=== PATIENT | female | born 1955 | race Caucasian/White ===

== ENCOUNTER 2022-01-13 12:59 | Emergency (ER) | payer BC, MEDICARE ==
[2022-01-13 14:17] LABS: #Eosinphils 0.1 thou/uL (0.0-0.7); #Lymphocytes 1.1 thou/uL (1.20-3.40); #Monocytes 0.5 thou/uL (0.11-0.59); #Neutrophils 4.5 thou/uL (1.40-6.50); %Basophils 0.4 % (0.0-1.0); %Monocytes 7.9 % (0.0-10.0); %Neutrophils 73.7 % (42.0-75.0); Hemoglobin 12.3 g/dL (12.0-16.0); Mean Corpuscular HGB CONC 31.8 g/dL (32.0-36.0); Mean Corpuscular Hemoglobin 29.2 pg (27.0-31.0); Mean Corpuscular Volume 91.8 fL (78.0-98.0); Platelet Count 198 thou/uL (130-400); RBC Distribution Width 14.7 % (11.5-14.5); Red Blood Cell (RBC) Count 4.22 mill/uL (4.20-5.40); White Blood Cell (WBC) Count 6.2 thou/uL (4.8-10.8)
[2022-01-13 14:37] LABS: ALT (SGPT) 14 U/L (8-55); AST (SGOT) 12 U/L (5-34); Alkaline Phosphatase 80 U/L (40-110); Anion Gap 13 mmol/L (10-20); BUN (Urea Nitrogen) 18 mg/dL (9.8-20.1); Bilirubin, Total 0.5 mg/dL (0.2-1.2); Calc. Creatinine Clearance 0 mL/min (70-130); Calcium 9.8 mg/dL (7.8-10.44); Carbon Dioxide 26 mmol/L (23-31); Chloride 103 mmol/L (98-107); Estimated GFR 83; Globulin 3.1 g/dL (2.4-3.5); Glucose 124 mg/dL (80-115); Potassium 4.2 mmol/L (3.5-5.1); Protein, Total 7.1 g/dL (5.8-8.1); Sodium 138 mmol/L (136-145)
== END 2022-01-13 16:21 | disposition home or self-care (01) ==
LOC: ERS 12:59
DX: N93.9 Abnormal uterine and vaginal bleeding, unspecified (principal); R93.89 Abnormal findings on diagnostic imaging of other specified body structures
CPT/HCPCS: 36415; 76856; 80053; 85025; 86850; 86900; 86901

== ENCOUNTER 2023-08-27 15:51 | Inpatient (IN) | payer BC, MEDICARE ==
[~2023-08-27 15:51] MED LIST: Iopamidol-370 76% 500 ML MDV (1 ML CHARGE) ONE
[2023-08-27] MEDS ORDERED: Morphine 4 MG/ML VIAL ONE ×2 (16:25→21:33)
[2023-08-27] MEDS ORDERED: Metoclopramide HCl 10 MG (2 mL) VIAL ONE (16:25)
[2023-08-27 16:27] LABS: #Basophils 0.03 10x3/uL (0.0-0.2); #Eosinphils Less than 0.03 10x3/uL (0.0-0.7); %Basophils 0.2 % (0.0-1.0); %Eosinophils 0.1 % (0.0-10.0); %Lymphocytes 4.9 % (21.0-51.0); %Monocytes 4.7 % (0.0-10.0); %Neutrophils 88.9 % (42.0-75.0); Hematocrit 40.4 % (36.0-47.0); Hemoglobin 13.3 g/dL (12.0-16.0); Mean Corpuscular HGB CONC 32.9 g/dL (32.0-36.0); Mean Corpuscular Hemoglobin 29.6 pg (27.0-31.0); Mean Platelet Volume 10.4 fL (7.4-10.4); Platelet Count 205 10x3/uL (130-400); RBC Distribution Width 14.2 % (11.5-14.5); Red Blood Cell (RBC) Count 4.49 mill/uL (4.20-5.40)
[2023-08-27 16:59] LABS: Globulin 3.8 g/dL (2.4-3.5)
[2023-08-27 17:04] LABS: ALT (SGPT) 12 U/L (8-55); AST (SGOT) 11 U/L (5-34); Albumin 3.5 g/dL (3.4-4.8); Alkaline Phosphatase 83 U/L (40-110); Anion Gap 14 mmol/L (10-20); BUN (Urea Nitrogen) 10 mg/dL (9.8-20.1); Bilirubin, Total 1.1 mg/dL (0.2-1.2); Calc. Creatinine Clearance 0 mL/min (70-130); Calcium 9.9 mg/dL (7.8-10.44); Carbon Dioxide 25 mmol/L (23-31); Chloride 98 mmol/L (98-107); Estimated GFR 88; Glucose 137 mg/dL (80-115); Lipase 74 U/L (8-78); Potassium 3.7 mmol/L (3.5-5.1); Protein, Total 7.3 g/dL (5.8-8.1); Sodium 133 mmol/L (136-145)
[2023-08-27 18:25] LABS: Troponin I Less than 0.010 ng/mL (< 0.028)
[2023-08-27] MEDS ORDERED: hydrALAZINE 20 MG/ML VIAL ONE ×2 (19:00→21:33)
[2023-08-27] MEDS ORDERED: fentaNYL 50 mcg/mL 1 mL Vial ONE (19:02)
[2023-08-27 19:17] LABS: Magnesium 1.9 mg/dL (1.6-2.6)
[2023-08-27 19:19] LABS: Bilirubin Negative (Negative); Blood, Urine Negative (Negative); CAUTI Indications for Culture Pelvic or flank pain; Clarity Clear (Clear); Glucose, Urine (Dipstick) Normal (Negative); Ketone, Urine 20 mg/dL (Negative); Leukocyte Negative Leu/uL (Negative); Nitrite Negative (Negative); Protein, Urine (Dipstick) 10 mg/dL (Neg-Trace); RBC/HPF 0-3 HPF (0-3); Specific Gravity, Urine 1.012 (1.002-1.036); Squamous Epithelial 0-3 HPF (0-3); Urobilinogen Normal mg/dL (Less than 2); WBC/HPF 0-3 HPF (0-3); pH, Urine 6.5 (5.0-9.0)
[2023-08-27 19:21] LABS: Bacteria/HPF 1+ HPF (None Seen)
[2023-08-27 19:22] LABS: Urine Culture Reflex No No
[2023-08-27] MEDS ORDERED: Nitroglycerin 0.4 MG TAB 1 EACH ONE (21:35)
[2023-08-28] MEDS: Sodium Chloride 0.9% 1,000 ML IV SCH (00:40)
[2023-08-28] MEDS: NIFEdipine XL 30 MG ER.TAB PO SCH (00:40)
[2023-08-28] MEDS ORDERED: HYDROcodone/Acetaminophen 7.5/325 mg Tablet ONE ×2 (04:42→10:53)
[2023-08-28] MEDS: HYDROcodone/Acetaminophen 7.5/325 mg Tablet PO PRN (04:44)
[2023-08-28 05:18] LABS: #Basophils 0.03 10x3/uL (0.0-0.2); #Eosinphils Less than 0.03 10x3/uL (0.0-0.7); %Basophils 0.2 % (0.0-1.0); %Eosinophils 0.1 % (0.0-10.0); %Monocytes 4.7 % (0.0-10.0); Hematocrit 39.3 % (36.0-47.0); Hemoglobin 12.6 g/dL (12.0-16.0); Mean Corpuscular HGB CONC 32.1 g/dL (32.0-36.0); Mean Corpuscular Hemoglobin 28.9 pg (27.0-31.0); Mean Corpuscular Volume 90.1 fL (78.0-98.0); Platelet Count 195 10x3/uL (130-400); RBC Distribution Width 14.3 % (11.5-14.5); Red Blood Cell (RBC) Count 4.36 mill/uL (4.20-5.40)
[2023-08-28 05:27] LABS: Globulin 3.6 g/dL (2.4-3.5)
[2023-08-28 05:31] LABS: ALT (SGPT) 9 U/L (8-55); AST (SGOT) 9 U/L (5-34); Albumin 3.2 g/dL (3.4-4.8); Alkaline Phosphatase 78 U/L (40-110); Anion Gap 14 mmol/L (10-20); BUN (Urea Nitrogen) 12 mg/dL (9.8-20.1); Calc. Creatinine Clearance 0 mL/min (70-130); Calcium 9.6 mg/dL (7.8-10.44); Carbon Dioxide 23 mmol/L (23-31); Chloride 99 mmol/L (98-107); Estimated GFR 91; Glucose 138 mg/dL (80-115); Lipase 21 U/L (8-78); Potassium 3.5 mmol/L (3.5-5.1); Protein, Total 6.8 g/dL (5.8-8.1); Sodium 132 mmol/L (136-145)
[2023-08-28] MEDS ORDERED: Ondansetron PF 4 MG/2 ML Vial ONE (08:04)
[2023-08-28] MEDS: Ondansetron PF 4 MG/2 ML Vial IVP PRN (08:13)
[2023-08-28] MEDS: NIFEdipine XL 60 MG ER.TAB PO SCH (08:18)
[2023-08-28 13:46] VITALS: BMI 56.3
[2023-08-28] MEDS ORDERED: Meclizine HCl 25 MG TAB PO PRN (17:54)
[2023-08-28] MEDS: Ampicillin/Sulbactam 3 GM in Sodium Chloride 0.9% 100 ML IVPB SCH (18:10)
[2023-08-28] MEDS ORDERED: Bisacodyl 10 MG SUPP PR PRN (18:10)
[2023-08-28] MEDS: Senokot S 8.6-50 MG TAB PO SCH (21:14)
[2023-08-29 04:08] LABS: #Basophils Less than 0.03 10x3/uL (0.0-0.2); %Basophils 0.2 % (0.0-1.0); %Lymphocytes 5.7 % (21.0-51.0); %Monocytes 6.2 % (0.0-10.0); Mean Corpuscular HGB CONC 32.5 g/dL (32.0-36.0); Mean Corpuscular Hemoglobin 29.3 pg (27.0-31.0); Mean Corpuscular Volume 90.1 fL (78.0-98.0); Mean Platelet Volume 10.5 fL (7.4-10.4); Platelet Count 215 10x3/uL (130-400); RBC Distribution Width 14.2 % (11.5-14.5); Red Blood Cell (RBC) Count 4.44 mill/uL (4.20-5.40)
[2023-08-29 04:20] LABS: Globulin 3.9 g/dL (2.4-3.5)
[2023-08-29 04:25] LABS: ALT (SGPT) 11 U/L (8-55); AST (SGOT) 11 U/L (5-34); Albumin 2.9 g/dL (3.4-4.8); Alkaline Phosphatase 78 U/L (40-110); Anion Gap 15 mmol/L (10-20); BUN (Urea Nitrogen) 15 mg/dL (9.8-20.1); Bilirubin, Total 0.7 mg/dL (0.2-1.2); Calc. Creatinine Clearance 170 mL/min (70-130); Calcium 9.5 mg/dL (7.8-10.44); Carbon Dioxide 22 mmol/L (23-31); Chloride 100 mmol/L (98-107); Estimated GFR 94; Glucose 118 mg/dL (80-115); Potassium 3.4 mmol/L (3.5-5.1); Protein, Total 6.8 g/dL (5.8-8.1); Sodium 134 mmol/L (136-145)
[2023-08-29] MEDS: Potassium Chloride 20 MEQ TAB PO SCH (09:43)
[2023-08-29] MEDS: Magnesium 2 GM/50 ML(in water) 2 GM in Premix 1 BAG IVPB SCH (09:44)
[2023-08-29] MEDS: Acetaminophen 325 MG TAB PO PRN (10:16)
[2023-08-29] MEDS ORDERED: Potassium Chloride 10 MEQ/100 ML PREMIX BAG IVPB SCH (14:00)
[2023-08-29] MEDS ORDERED: EPINEPHrine 1 MG/ML VIAL ONE (15:14)
[2023-08-29] MEDS ORDERED: Bupivacaine PF 0.5% 30 ML VIAL ONE (15:14)
[2023-08-29] MEDS ORDERED: fentaNYL PF 100 MCG/2 ML SYRINGE ONE (15:26)
[2023-08-29] MEDS ORDERED: PROPOFOL 20 ML ONE (15:26)
[2023-08-29] MEDS ORDERED: Midazolam HCl 2 mg/2 ml Vial ONE (15:26)
[2023-08-29] MEDS ORDERED: Glycopyrrolate 0.2 MG/ML 5 ML SYRINGE ONE (16:14)
[2023-08-29] MEDS ORDERED: Dexamethasone 20 MG/5 ML VIAL ONE (16:25)
[2023-08-29] MEDS ORDERED: Lidocaine 1% PF 5 ML VIAL ONE (16:25)
[2023-08-29] MEDS ORDERED: Rocuronium Bromide 10 MG/ML (10ML VIAL) ONE (16:25)
[2023-08-29] MEDS ORDERED: Ketorolac Tromethamine 30 MG (1 mL) VIAL ONE (16:25)
[2023-08-29] MEDS ORDERED: SUGAMMADEX SODIUM 200 MG/2 ML VIAL ONE (16:25)
[2023-08-29] MEDS ORDERED: Ondansetron PF 4 MG/2 ML Vial ONE (16:25)
[2023-08-29] MEDS ORDERED: traMADol HCl 50 MG TAB PO PRN (16:35)
[2023-08-29] MEDS ORDERED: Ibuprofen 600 MG TAB PO PRN (16:35)
[2023-08-29] MEDS ORDERED: Acetaminophen 500 MG TAB PO SCH (17:00)
[2023-08-29 18:35] VITALS: BP 155/68; TEMP 97.2
[2023-08-30] MEDS ORDERED: Polyethylene Glycol 3350 17 GM Packet PO SCH (09:00)
[2023-09-05] MEDS ORDERED: Semaglutide [Ozempic] 1 MG/0.75 ML Pen.Injctr SC SCH (09:00)
== END 2023-08-29 20:00 | disposition home or self-care (01) | DRG 418 ==
LOC: ERS 15:51 → ERHOLD 23:07 → 2SW 23:32 → OBSVTOIN 08-28 17:13 → 2SW 08-29 09:54
PROVIDERS: ADMIT Internal Medicine; ATTEND Internal Medicine
PROC: 0FT44ZZ Resection of Gallbladder, Percutaneous Endoscopic Approach (ICD-10-PCS; principal; 2023-08-29)
PROC: 3E033XZ Introduction of Vasopressor into Peripheral Vein, Percutaneous Approach (ICD-10-PCS; 2023-08-29)
DX: K80.12 Calculus of gallbladder with acute and chronic cholecystitis without obstruction (principal); E87.1 Hypo-osmolality and hyponatremia; Z68.43 Body mass index [BMI] 50.0-59.9, adult; I16.0 Hypertensive urgency; Z90.710 Acquired absence of both cervix and uterus; Z79.899 Other long term (current) drug therapy; E66.01 Morbid (severe) obesity due to excess calories; E87.6 Hypokalemia; D72.829 Elevated white blood cell count, unspecified
CPT/HCPCS: 36415; 70450; 71045; 71275; 74174; 76705; 80053; 81001; 83605; 83690; 83735; 83880; 84484; 85025; 88304; 93005; 96361; 96374; 96375; 96376; C1889; G0378; J0171; J0295; J0360; J0665; J1100; J1885; J2250; J2270; J2405; J2704; J2765; J3010; J3475; J3490; J7050; Q9967

== ENCOUNTER 2025-02-26 14:51 | Emergency (ER) | payer BC, MEDICARE ==
[2025-02-26 16:08] LABS: #Basophils Less than 0.03 10x3/uL (0.0-0.2); #Eosinophils 0.03 10x3/uL (0.0-0.7); #Monocytes 0.43 10x3/uL (0.11-0.59); #Neutrophils 5.65 10x3/uL (1.40-6.50); %Basophils 0.3 % (0.0-1.0); %Eosinophils 0.4 % (0.0-10.0); %Lymphocytes 10.7 % (21.0-51.0); %Monocytes 6.2 % (0.0-10.0); %Neutrophils 81.7 % (42.0-75.0); Hematocrit 38.5 % (36.0-47.0); Hemoglobin 12.5 g/dL (12.0-16.0); Mean Corpuscular Hemoglobin 28.4 pg (27.0-31.0); Mean Corpuscular Volume 87.5 fL (78.0-98.0); Platelet Count 197 10x3/uL (130-400); Red Blood Cell (RBC) Count 4.40 mill/uL (4.20-5.40); White Blood Cell (WBC) Count 6.92 10x3/uL (4.8-10.8)
[2025-02-26 16:21] LABS: INR-International Normal Ratio 0.9; Prothrombin Time 12.5 sec (12.0-14.7)
[2025-02-26 16:22] LABS: PTT 26.0 sec (22.9-36.1)
[2025-02-26 16:29] LABS: ALT (SGPT) 243 U/L (Less than 34); AST (SGOT) 137 U/L (11-34); Albumin 3.2 g/dL (3.1-4.5); Alkaline Phosphatase 434 U/L (40-110); Anion Gap 14 mmol/L (10-20); BUN (Urea Nitrogen) 19 mg/dL (9.8-20.1); Bilirubin, Total 7.2 mg/dL (0.3-1.2); CK (CPK) 27 U/L (29-168); Calc. Creatinine Clearance 0 mL/min (70-130); Calcium 9.8 mg/dL (7.8-10.44); Carbon Dioxide 25 mmol/L (23-31); Chloride 96 mmol/L (98-107); Globulin 3.5 g/dL (2.4-3.5); Glucose 348 mg/dL (83-110); Lipase 53 U/L (8-78); Magnesium 1.8 mg/dL (1.6-2.6); Potassium 3.3 mmol/L (3.5-5.1); Sodium 132 mmol/L (136-145)
[2025-02-26 20:06] LABS: Bacteria/HPF None Seen HPF (None Seen); CAUTI Indications for Culture Alt mental st,lethar; Glucose, Urine (Dipstick) Greater than 1000 mg/dL (Negative); Leukocyte 75 Leu/uL (Negative); Protein, Urine (Dipstick) 10 mg/dL (Neg-Trace); RBC/HPF 0-3 HPF (0-3); WBC/HPF 0-3 HPF (0-3); Yeast-Budding Rare HPF (None Seen)
[2025-02-26 20:11] LABS: Specific Gravity, Urine Greater than 1.036 (1.002-1.036)
[2025-02-26 20:13] LABS: Urine Culture Reflex No No
[2025-02-26] MEDS ORDERED: diphenhydrAMINE 50 MG/ML VIAL ONE (21:34)
== END 2025-02-27 00:40 | disposition short-term general hospital (02) ==
LOC: ERS 14:51
DX: K86.9 Disease of pancreas, unspecified (principal); R17 Unspecified jaundice
CPT/HCPCS: 71045; 74177; 81001; 82248; 82550; 83605; 83690; 83735; 83880; 84100; 84484; 85610; 85730; 86850; 86900; 86901; 93005; 96374; 96375; 99285; J1200; J2270; J3010; 84443; 85025

== ENCOUNTER 2025-03-14 17:19 | Inpatient (IN) | payer MEDICARE, OTHER ==
[2025-03-14 17:56] LABS: #Basophils 0.04 10x3/uL (0.0-0.2); #Eosinophils 0.10 10x3/uL (0.0-0.7); #Monocytes 1.09 10x3/uL (0.11-0.59); #Neutrophils 8.74 10x3/uL (1.40-6.50); %Basophils 0.4 % (0.0-1.0); %Eosinophils 0.9 % (0.0-10.0); %Lymphocytes 10.8 % (21.0-51.0); %Monocytes 9.7 % (0.0-10.0); %Neutrophils 77.7 % (42.0-75.0); Hematocrit 37.8 % (36.0-47.0); Hemoglobin 12.0 g/dL (12.0-16.0); Mean Corpuscular Hemoglobin 28.8 pg (27.0-31.0); Mean Corpuscular Volume 90.9 fL (78.0-98.0); Platelet Count 320 10x3/uL (130-400); Red Blood Cell (RBC) Count 4.16 mill/uL (4.20-5.40); White Blood Cell (WBC) Count 11.25 10x3/uL (4.8-10.8)
[2025-03-14 18:00] LABS: ALT (SGPT) 57 U/L (Less than 34); AST (SGOT) 54 U/L (11-34); Albumin 3.1 g/dL (3.1-4.5); Alkaline Phosphatase 182 U/L (40-110); Anion Gap 20 mmol/L (10-20); BUN (Urea Nitrogen) 52 mg/dL (9.8-20.1); Bilirubin, Total 2.6 mg/dL (0.3-1.2); Calc. Creatinine Clearance 0 mL/min (70-130); Calcium 9.6 mg/dL (7.8-10.44); Carbon Dioxide 17 mmol/L (23-31); Chloride 101 mmol/L (98-107); Globulin 4.1 g/dL (2.4-3.5); Glucose 119 mg/dL (83-110); Potassium 4.8 mmol/L (3.5-5.1); Sodium 133 mmol/L (136-145)
[2025-03-14 18:21] LABS: CAUTI Indications for Culture Alt mental st,lethar; Glucose, Urine (Dipstick) 30 mg/dL (Negative); Leukocyte Negative Leu/uL (Negative); Protein, Urine (Dipstick) 30 mg/dL (Neg-Trace); RBC/HPF 0-3 HPF (0-3); Specific Gravity, Urine 1.022 (1.002-1.036); WBC/HPF 0-3 HPF (0-3)
[2025-03-14 18:22] LABS: Bacteria/HPF 1+ HPF (None Seen); Urine Culture Reflex No No
[2025-03-14] MEDS ORDERED: Norepinephrine 8 MG/0.9% NS 250 ML ONE (18:32)
[2025-03-14] MEDS ORDERED: VANCOMYCIN 2 GRAM/400 ML BAG ONE (19:03)
[2025-03-14 19:23] LABS: Actual Bicarbonate (HCO3v) 21.1 mEq/L (22-28); Analyzer IN Cardio ER; Base Excess -6.0 mEq/L (-2.0 to +3.0); Calcium, Ionized (venous) 1.08 mmol/L (1.16-1.32); Chloride (VBG) 101 mmol/L (98-106); Hematocrit-VBG 37 % (36.0-47.0); Hemoglobin (Hb) 12.6 g/dL (11.7-16.1); Potassium (VBG) 4.14 mmol/L (3.70-5.30); Sodium 135 mmol/L (133-146)
[2025-03-14] MEDS ORDERED: Vancomycin 1.5 GM / NS 500ML VIAL-2-BAG IVPB SCH (20:00)
[2025-03-14] MEDS ORDERED: Vancomycin Dose by Levels Sliding Scale (Wt > 99) FS SCH (23:00)
[2025-03-14] MEDS: Hydrocortisone Sod Succ/PF 100 mg/2 ml Vial IVP SCH (23:10)
[2025-03-14] MEDS: VANCOMYCIN 2 GRAM/400 ML Premix BAG IVPB SCH (23:13)
[2025-03-14] MEDS ORDERED: Glucagon 1 MG/ML KIT IM PRN (23:44)
[2025-03-14] MEDS ORDERED: Dextrose 50% Abboject 50 ML SYRINGE SLOW IVP PRN (23:44)
[2025-03-15 00:54] LABS: INR-International Normal Ratio 1.4; PTT 28.7 sec (22.9-36.1); Prothrombin Time 16.8 sec (12.0-14.7)
[2025-03-15] MEDS: Vasopressin In 0.9 % NaCl 100 ML IV SCH (01:06)
[2025-03-15 03:00] LABS: #Basophils 0.05 10x3/uL (0.0-0.2); #Eosinophils 0.11 10x3/uL (0.0-0.7); #Monocytes 0.56 10x3/uL (0.11-0.59); #Neutrophils 22.27 10x3/uL (1.40-6.50); %Basophils 0.2 % (0.0-1.0); %Eosinophils 0.5 % (0.0-10.0); %Lymphocytes 1.2 % (21.0-51.0); %Monocytes 2.4 % (0.0-10.0); %Neutrophils 95.0 % (42.0-75.0); Hematocrit 36.2 % (36.0-47.0); Hemoglobin 11.2 g/dL (12.0-16.0); Mean Corpuscular Hemoglobin 29.2 pg (27.0-31.0); Mean Corpuscular Volume 94.3 fL (78.0-98.0); Platelet Count 336 10x3/uL (130-400); Red Blood Cell (RBC) Count 3.84 mill/uL (4.20-5.40); White Blood Cell (WBC) Count 23.45 10x3/uL (4.8-10.8)
[2025-03-15 03:42] LABS: ALT (SGPT) 52 U/L (Less than 34); AST (SGOT) 58 U/L (11-34); Albumin 2.6 g/dL (3.1-4.5); Alkaline Phosphatase 159 U/L (40-110); Anion Gap 21 mmol/L (10-20); BUN (Urea Nitrogen) 54 mg/dL (9.8-20.1); Bilirubin, Total 2.7 mg/dL (0.3-1.2); Calc. Creatinine Clearance 16 mL/min (70-130); Calcium 8.3 mg/dL (7.8-10.44); Carbon Dioxide 15 mmol/L (23-31); Chloride 103 mmol/L (98-107); Globulin 3.3 g/dL (2.4-3.5); Glucose 194 mg/dL (83-110); Potassium 4.3 mmol/L (3.5-5.1); Sodium 135 mmol/L (136-145)
[2025-03-15] MEDS: Hydrocortisone Sod Succ/PF 100 mg/2 ml Vial IVP SCH (04:03)
[2025-03-15] MEDS: Norepinephrine 8 MG/0.9% NS 250 ML IVPB SCH (05:34)
[2025-03-15] MEDS: Heparin 5,000 UNITS/ML VIAL SC SCH (09:52)
[2025-03-15] MEDS: Mupirocin 1 GM TUBE TP SCH (09:52)
[2025-03-15] MEDS: Pantoprazole 40 MG VIAL IVP SCH (09:52)
[2025-03-15] MEDS: Albumin 25% 25 GM (100 mL) BOT IVPB SCH ×2 (09:52→11:34)
[2025-03-15 18:45] LABS: Albumin 3.3 g/dL (3.1-4.5); Anion Gap 22 mmol/L (10-20); BUN (Urea Nitrogen) 57 mg/dL (9.8-20.1); BUN/Creatinine Ratio 12.26; Calc. Creatinine Clearance 20 mL/min (70-130); Calcium 8.4 mg/dL (7.8-10.44); Carbon Dioxide 18 mmol/L (23-31); Chloride 99 mmol/L (98-107); Glucose 229 mg/dL (83-110); Potassium 4.3 mmol/L (3.5-5.1); Sodium 135 mmol/L (136-145)
[2025-03-16] MEDS: diphenhydrAMINE 50 MG/ML VIAL IVP SCH ×2 (01:48→20:05)
[2025-03-16 04:54] LABS: Vancomycin, Random 21.2 ug/mL (See Comment)
[2025-03-16 04:56] LABS: ALT (SGPT) 34 U/L (Less than 34); AST (SGOT) 25 U/L (11-34); Albumin 3.4 g/dL (3.1-4.5); Alkaline Phosphatase 92 U/L (40-110); Anion Gap 19 mmol/L (10-20); BUN (Urea Nitrogen) 61 mg/dL (9.8-20.1); Bilirubin, Total 2.0 mg/dL (0.3-1.2); Calc. Creatinine Clearance 22 mL/min (70-130); Calcium 8.6 mg/dL (7.8-10.44); Carbon Dioxide 23 mmol/L (23-31); Chloride 99 mmol/L (98-107); Globulin 2.5 g/dL (2.4-3.5); Glucose 257 mg/dL (83-110); Potassium 3.3 mmol/L (3.5-5.1); Sodium 138 mmol/L (136-145)
[2025-03-16 05:05] LABS: #Basophils Less than 0.03 10x3/uL (0.0-0.2); #Eosinophils Less than 0.03 10x3/uL (0.0-0.7); #Monocytes 0.32 10x3/uL (0.11-0.59); #Neutrophils 7.29 10x3/uL (1.40-6.50); %Basophils 0.1 % (0.0-1.0); %Eosinophils 0.0 % (0.0-10.0); %Lymphocytes 4.0 % (21.0-51.0); %Monocytes 4.0 % (0.0-10.0); %Neutrophils 91.4 % (42.0-75.0); Hematocrit 25.7 % (36.0-47.0); Hemoglobin 8.3 g/dL (12.0-16.0); Mean Corpuscular Hemoglobin 29.4 pg (27.0-31.0); Mean Corpuscular Volume 91.1 fL (78.0-98.0); Platelet Count 172 10x3/uL (130-400); Red Blood Cell (RBC) Count 2.82 mill/uL (4.20-5.40); White Blood Cell (WBC) Count 7.98 10x3/uL (4.8-10.8)
[2025-03-16] MEDS: Furosemide 100 MG (10 mL) VIAL SLOW IVP SCH (09:32)
[2025-03-16] MEDS: Potassium Bicarbonate/Cit Ac 20 MEQ TAB PO SCH (09:33)
[2025-03-16] MEDS: hydrALAZINE 20 MG/ML VIAL SLOW IVP PRN (15:48)
[2025-03-17 04:50] LABS: #Basophils Less than 0.03 10x3/uL (0.0-0.2); #Eosinophils Less than 0.03 10x3/uL (0.0-0.7); #Monocytes 0.78 10x3/uL (0.11-0.59); #Neutrophils 8.20 10x3/uL (1.40-6.50); %Basophils 0.1 % (0.0-1.0); %Eosinophils 0.1 % (0.0-10.0); %Lymphocytes 5.6 % (21.0-51.0); %Monocytes 8.0 % (0.0-10.0); %Neutrophils 84.0 % (42.0-75.0); Hematocrit 26.7 % (36.0-47.0); Hemoglobin 8.4 g/dL (12.0-16.0); Mean Corpuscular Hemoglobin 29.2 pg (27.0-31.0); Mean Corpuscular Volume 92.7 fL (78.0-98.0); Platelet Count 206 10x3/uL (130-400); Red Blood Cell (RBC) Count 2.88 mill/uL (4.20-5.40); White Blood Cell (WBC) Count 9.76 10x3/uL (4.8-10.8)
[2025-03-17 04:57] LABS: Vancomycin, Random 16.3 ug/mL (See Comment)
[2025-03-17 05:06] LABS: ALT (SGPT) 29 U/L (Less than 34); AST (SGOT) 20 U/L (11-34); Albumin 3.5 g/dL (3.1-4.5); Alkaline Phosphatase 82 U/L (40-110); Anion Gap 18 mmol/L (10-20); BUN (Urea Nitrogen) 61 mg/dL (9.8-20.1); Bilirubin, Total 1.7 mg/dL (0.3-1.2); Calc. Creatinine Clearance 29 mL/min (70-130); Calcium 9.4 mg/dL (7.8-10.44); Carbon Dioxide 26 mmol/L (23-31); Chloride 102 mmol/L (98-107); Globulin 2.6 g/dL (2.4-3.5); Glucose 180 mg/dL (83-110); Potassium 3.6 mmol/L (3.5-5.1); Sodium 142 mmol/L (136-145)
[2025-03-17 06:21] VITALS: BMI 48.4
[2025-03-17] MEDS: Ondansetron PF 4 MG/2 ML Vial ONE (08:15)
[2025-03-17] MEDS: Megestrol Acetate 800 MG/20 ML UDCUP PO SCH (10:41)
[2025-03-17 11:53] VITALS: BMI 48.4
[2025-03-17] MEDS: Ondansetron PF 4 MG/2 ML Vial IVP PRN (11:56)
[2025-03-17] MEDS: NIFEdipine XL 60 MG ER.TAB PO SCH (19:00)
[2025-03-17 20:31] VITALS: BP 183/93
[2025-03-17] MEDS: Fluconazole In NaCl,Iso-Osm 400 MG in Premix 1 BAG IVPB SCH (21:08)
[2025-03-18 04:37] LABS: #Basophils Less than 0.03 10x3/uL (0.0-0.2); #Eosinophils Less than 0.03 10x3/uL (0.0-0.7); #Monocytes 0.47 10x3/uL (0.11-0.59); #Neutrophils 6.64 10x3/uL (1.40-6.50); %Basophils 0.3 % (0.0-1.0); %Eosinophils 0.0 % (0.0-10.0); %Lymphocytes 5.7 % (21.0-51.0); %Monocytes 5.9 % (0.0-10.0); %Neutrophils 83.9 % (42.0-75.0); Hematocrit 28.8 % (36.0-47.0); Hemoglobin 8.9 g/dL (12.0-16.0); Mean Corpuscular Hemoglobin 28.8 pg (27.0-31.0); Mean Corpuscular Volume 93.2 fL (78.0-98.0); Platelet Count 186 10x3/uL (130-400); Red Blood Cell (RBC) Count 3.09 mill/uL (4.20-5.40); White Blood Cell (WBC) Count 7.91 10x3/uL (4.8-10.8)
[2025-03-18 05:03] LABS: ALT (SGPT) 27 U/L (Less than 34); AST (SGOT) 17 U/L (11-34); Albumin 3.3 g/dL (3.1-4.5); Alkaline Phosphatase 83 U/L (40-110); Anion Gap 15 mmol/L (10-20); BUN (Urea Nitrogen) 59 mg/dL (9.8-20.1); Bilirubin, Total 1.6 mg/dL (0.3-1.2); Calc. Creatinine Clearance 48 mL/min (70-130); Calcium 9.6 mg/dL (7.8-10.44); Carbon Dioxide 27 mmol/L (23-31); Chloride 105 mmol/L (98-107); Globulin 2.5 g/dL (2.4-3.5); Glucose 180 mg/dL (83-110); Potassium 3.3 mmol/L (3.5-5.1); Sodium 144 mmol/L (136-145)
[2025-03-18] MEDS: Potassium Chloride 20 MEQ in Premix 1 BAG IVPB SCH (06:33)
[2025-03-18] MEDS: Fluconazole In NaCl,Iso-Osm 200 MG in Premix 1 BAG IVPB SCH (09:37)
[2025-03-18] MEDS: NIFEdipine XL 60 MG ER.TAB PO SCH (09:45)
[2025-03-18 09:56] LABS: Magnesium 1.9 mg/dL (1.6-2.6)
[2025-03-18] MEDS: Megestrol Acetate 800 MG/20 ML UDCUP PO SCH (10:37)
[2025-03-18] MEDS: Linezolid 600 MG TAB PO SCH ×2 (12:00→19:47)
[2025-03-18 17:05] VITALS: TEMP 97.7
[2025-03-18] MEDS: Hydrocortisone Sod Succ/PF 100 mg/2 ml Vial IVP SCH (19:47)
== END 2025-03-18 20:01 | disposition hospice, inpatient (51) | DRG 871 ==
LOC: ERS 17:19 → CCU 21:35 → IMCU/EMU 03-17 12:40
PROVIDERS: ADMIT Student in an Organized Health Care Education/Training Program; ATTEND Student in an Organized Health Care Education/Training Program
PROC: 3E03329 Introduction of Other Anti-infective into Peripheral Vein, Percutaneous Approach (ICD-10-PCS; 2025-03-14)
PROC: 06HY33Z Insertion of Infusion Device into Lower Vein, Percutaneous Approach (ICD-10-PCS; principal; 2025-03-15)
PROC: 0T9B70Z Drainage of Bladder with Drainage Device, Via Natural or Artificial Opening (ICD-10-PCS; 2025-03-15)
PROC: 30233J1 Transfusion of Nonautologous Serum Albumin into Peripheral Vein, Percutaneous Approach (ICD-10-PCS; 2025-03-15)
PROC: 3E043XZ Introduction of Vasopressor into Central Vein, Percutaneous Approach (ICD-10-PCS; 2025-03-15)
DX: A41.9 Sepsis, unspecified organism (principal); G93.41 Metabolic encephalopathy; I21.A1 Myocardial infarction type 2; R65.21 Severe sepsis with septic shock; N17.0 Acute kidney failure with tubular necrosis; Z68.42 Body mass index [BMI] 45.0-49.9, adult; E87.1 Hypo-osmolality and hyponatremia; C78.7 Secondary malignant neoplasm of liver and intrahepatic bile duct; C25.9 Malignant neoplasm of pancreas, unspecified; C78.4 Secondary malignant neoplasm of small intestine; E87.20 Acidosis, unspecified; K83.09 Other cholangitis; Z66 Do not resuscitate; Z51.5 Encounter for palliative care; I10 Essential (primary) hypertension; Z90.49 Acquired absence of other specified parts of digestive tract; E66.01 Morbid (severe) obesity due to excess calories; E86.0 Dehydration; G47.33 Obstructive sleep apnea (adult) (pediatric); R74.01 Elevation of levels of liver transaminase levels; E86.1 Hypovolemia; L89.159 Pressure ulcer of sacral region, unspecified stage; D64.9 Anemia, unspecified
CPT/HCPCS: 36415; 36416; 51701; 70450; 71045; 74176; 80053; 80202; 81001; 82140; 82550; 82570; 82805; 83605; 83735; 84300; 84484; 85025; 85610; 85730; 87040; 87070; 87077; 87086; 87186; 87205; 93005; 93010; 94760; 96365; 96366; 96368; J0360; J1200; J1450; J1644; J1720; J1815; J1940; J2272; J2405; J2470; J2543; J3375; J3480; J7030; J7070; J7120; P9047

== ENCOUNTER 2025-03-18 20:01 | Inpatient (IN) | payer OTHER ==
[2025-03-18] MEDS ORDERED: Scopolamine 1 mg/72 hour Patch TOP PRN (20:38)
[2025-03-18] MEDS: Ondansetron PF 4 MG/2 ML Vial IVP SCH (23:15)
[2025-03-19] MEDS: Scopolamine 1 mg/72 hour Patch TOP PRN (09:56)
[2025-03-19] MEDS: Scopolamine 1 mg/72 hour Patch TOP SCH (14:25)
[2025-03-22 21:39] VITALS: BP 99/64; TEMP 101
== END 2025-03-23 03:39 | disposition expired | DRG 951 ==
LOC: IMCU/EMU 20:01 → MSONC 03-19 05:06
PROVIDERS: ADMIT Internal Medicine Nephrology; ATTEND Internal Medicine Nephrology
DX: Z51.5 Encounter for palliative care (principal); I21.A1 Myocardial infarction type 2; C25.9 Malignant neoplasm of pancreas, unspecified; E87.1 Hypo-osmolality and hyponatremia; G93.40 Encephalopathy, unspecified; N17.9 Acute kidney failure, unspecified; E87.20 Acidosis, unspecified; Z68.42 Body mass index [BMI] 45.0-49.9, adult; Z66 Do not resuscitate; I10 Essential (primary) hypertension; Z98.890 Other specified postprocedural states; C54.1 Malignant neoplasm of endometrium; S39.92XA Unspecified injury of lower back, initial encounter
CPT/HCPCS: 93005; 93010; J2060; J2270; J2272; J2405